=== PATIENT | male | born 2000 | race African-American/Black ===

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

== ENCOUNTER 2021-11-20 21:29 | Emergency (ER) | payer OTHER ==
[2021-11-20] MEDS ORDERED: Boostrix 0.5 ML (Tdap) VIAL ONE (21:58)
== END 2021-11-20 22:07 | disposition home or self-care (01) ==
LOC: ERS 21:29
DX: S01.311A Laceration without foreign body of right ear, initial encounter (principal); Z23 Encounter for immunization; X50.9XXA Other and unspecified overexertion or strenuous movements or postures, initial encounter
CPT/HCPCS: 90471; 90715